=== PATIENT | female | born 1955 | race Caucasian/White ===

== ENCOUNTER 2016-07-04 14:02 | Observation (INO) | payer OTHER ==
[2016-07-04] MEDS ORDERED: Aspirin Low Dose CHEW TAB* 81 MG PO ONE (16:23)
--- NOTE | 2016-07-04 16:52 | RAD ---
HISTORY: Chest pain, shortness breath, pneumonia, CHF COMPARISONS: None VIEWS:1: Single frontal portable view of the chest at 4:36 PM FINDINGS: LINES AND TUBES: None. CARDIOMEDIASTINAL SILHOUETTE: The cardiomediastinal silhouette is normal for portable technique. PLEURA: The costophrenic angles are sharp. No pleural abnormalities are noted. LUNG PARENCHYMA: The lungs are clear. ABDOMEN: The upper abdomen is clear. There is no subphrenic gas. BONES AND SOFT TISSUES: No bone or soft tissue abnormalities are noted. IMPRESSION: NO ACTIVE CARDIOPULMONARY DISEASE.
[2016-07-04 17:10] LABS: Hematocrit 43 % (35-47); Hemoglobin 14.4 g/dl (12.0-16.0); Mean Corpuscular HGB Conc 33 g/dl (31-36); Mean Corpuscular Hemoglobin 29 pg (27-31); Mean Corpuscular Volume 88 fL (80-97); Mean Platelet Volume 8 um3 (7.4-10.4); Red Blood Count 4.88 10^6/ul (4.0-5.4); Red Cell Distribution Width 13 % (10.5-15); White Blood Count 8.8 10^3/ul (3.5-10.8)
[2016-07-04 17:26] LABS: Albumin 4.2 g/dL (3.2-5.2); BUN/Creatinine Ratio 16.9 (8-20); Calcium 9.2 mg/dL (8.6-10.3); EGFR Non-African American 93.3 (>60); Globulin 2.7 g/dL (2-4); Potassium 3.9 mmol/L (3.5-5.0); Total Bilirubin 0.3 mg/dL (0.2-1.0); Total Protein 6.9 g/dL (6.4-8.9)
[2016-07-04] MEDS ORDERED: Nicotine Inhaler* 10 MG AMP INH PRN (18:11)
[2016-07-04] MEDS ORDERED: Acetaminophen TAB* 325 MG PO PRN (18:11)
--- NOTE | 2016-07-04 19:34 | ED ---
Dima Malhotra Adam, scribed for Speedy Shannon MD on 07/04/16 at 1620 . HPI Chest Pain - HPI Summary HPI Summary: Pt is a 60 year old female presenting with CP. She states that she was shoveling snow at 13:30 when she suddenly felt a sharp pain in her chest. Since then it has been more of a "tight ache". It radiates to her left shoulder blade and the left side of her neck. Position does not affect the CP. Deep breaths aggravate the pain. She reports feeling short of breath when the CP first set on while she was shoveling but she denies any SOB since then. Pt states that she developed a condition several years ago where she occasionally has to bear down. She denies any other PMHx and denies ever having a stress test. FMHx of cardiac disease (grandparent). Positive tobacco Hx. - History of Current Complaint Chief Complaint: EDChestPainROMI Time Seen by Provider: 07/04/16 16:13 Hx Obtained From: Patient Onset/Duration: Started Hours Ago, Atraumatic, Still Present Timing: Constant, Lasting Hours Initial Severity: Moderate Current Severity: Moderate Pain Intensity: 4 Pain Scale Used: 0-10 Numeric Chest Pain Location: Diffuse Chest Pain Radiates: Yes Chest Pain Radiates To:: Shoulder, Neck Character: Dull/Aching, Sharp/Stabbing, Tightness Aggravating Factor(s): Deep Breaths Alleviating Factor(s): Nothing Associated Signs and Symptoms: Positive: Shortness of Breath - Allergy/Home Medications Allergies/Adverse Reactions: Allergies Allergy/AdvReac Type Severity Reaction Status Date / Time No Known Allergies Allergy Verified 10/21/13 16:38 Home Medications: Home Medications NK [No Home Medications Reported] 07/04/16 [History Confirmed 07/04/16] PMH/Surg Hx/FS Hx/Imm Hx Endocrine/Hematology History: Denies: Hx Diabetes, Hx Thyroid Disease Cardiovascular History: Denies: Hx Hypertension, Hx Pacemaker/ICD Respiratory History: Denies: Hx Asthma, Hx Chronic Obstructive Pulmonary Disease (COPD) GI History: Denies: Hx Ulcer Sensory History: Denies: Hx Hearing Aid Psychiatric History: Denies: Hx Panic Disorder - Cancer History Cancer Type, Location and Year: skin ca to leg Infectious Disease History: No Infectious Disease History: Denies: Hx Hepatitis, Hx Human Immunodeficiency Virus (HIV), Traveled Outside the [place] in Last 30 Days - Family History Known Family History: Positive: Cardiac Disease - Grandparent - Social History Occupation: Employed Full-time Lives: With Family - Alcohol Use: None Hx Substance Use: Yes Substance Use Type: Reports: Marijuana Substance Use Comment - Amount & Last Used: occasionally Hx Tobacco Use: Yes Smoking Status (MU): Current Every Day Smoker Type: Cigarettes Amount Used/How Often: 1/2 3/4ppd Have You Smoked in the Last Year: Yes Review of Systems Positive: Chest Pain Positive: Shortness Of Breath Positive: Anxious All Other Systems Reviewed And Are Negative: Yes Physical Exam - Summary Physical Exam Summary: The patient is well-nourished in no acute distress and in no acute pain. The skin is warm and dry and skin color reflects adequate perfusion. HEENT: The head is normocephalic and atraumatic. The pupils are equal and reactive. The conjunctivae are clear and without drainage. Nares are patent and without drainage. Mouth reveals moist mucous membranes and the throat is without erythema and exudate. The external ears are intact. The ear canals are patent and without drainage. The tympanic membranes are intact. Neck is supple with full range of motion and non-tender. There are no carotid bruits. There is no neck vein distension. Respiratory: No reproducible chest tenderness. Lungs are clear to auscultation and breath sounds are symmetrical and equal. Cardiovascular: Heart is regular rate and rhythm. There is no murmur or rub auscultated. There is no peripheral edema and pulses are symmetrical and equal. Abdomen: The abdomen is soft and non-tender. There are normal bowel sounds heard in all four quadrants and there is no organomegaly palpated. Musculoskeletal: Tenderness in the left paravertebral musculature L1-L4. Extremities are non-tender with full range of motion. There is good capillary refill. There is no peripheral edema or calf tenderness elicited. Neurological: Patient is alert and oriented to person, place and time. The patient has symmetrical motor strength in all four extremities. Cranial nerves are grossly intact. Deep tendon reflexes are symmetrical and equal in all four extremities. Psychiatric: The patient has an appropriate affect and does not exhibit any anxiety or depression. Triage Information Reviewed: Yes Vital Signs On Initial Exam: Initial Vitals Temp Pulse Resp BP Pulse Ox 97.5 F 67 20 149/82 100 07/04/16 14:07 07/04/16 14:07 07/04/16 14:07 07/04/16 14:07 07/04/16 14:07 Vital Signs Reviewed: Yes Diagnostics - Vital Signs Vital Signs Temp Pulse Resp BP Pulse Ox 07/04/16 15:35 98.6 F 65 20 135/80 98 07/04/16 14:07 97.5 F 67 20 149/82 100 - Laboratory Lab Results: Lab Results 07/04/16 07/04/16 07/04/16 Range/Units 17:00 17:00 17:00 WBC 8.8 (3.5-10.8) 10^3/ul RBC 4.88 (4.0-5.4) 10^6/ul Hgb 14.4 (12.0-16.0) g/dl Hct 43 (35-47) % MCV 88 (80-97) fL MCH 29 (27-31) pg MCHC 33 (31-36) g/dl RDW 13 (10.5-15) % Plt Count 247 (150-450) 10^3/ul MPV 8 (7.4-10.4) um3 Neut % (Auto) 43.4 (38-83) % Lymph % (Auto) 48.1 H (25-47) % [place] % (Auto) 6.4 (1-9) % Eos % (Auto) 1.2 (0-6) % Baso % (Auto) 0.9 (0-2) % Absolute Neuts (auto) 3.8 (1.5-7.7) 10^3/ul Absolute Lymphs (auto) 4.2 (1.0-4.8) 10^3/ul Absolute Monos (auto) 0.6 (0-0.8) 10^3/ul Absolute Eos (auto) 0.1 (0-0.6) 10^3/ul Absolute Basos (auto) 0.1 (0-0.2) 10^3/ul Absolute Nucleated RBC 0 10^3/ul Nucleated RBC % 0 INR (Anticoag Therapy) (0.89-1.11) Sodium 137 (133-145) mmol/L Potassium 3.9 (3.5-5.0) mmol/L Chloride 103 (101-111) mmol/L Carbon Dioxide 30 (22-32) mmol/L Anion Gap 4 (2-11) mmol/L BUN 11 (6-24) mg/dL Creatinine 0.65 (0.51-0.95) mg/dL Est GFR ( Amer) 120.0 (>60) Est GFR (Non-Af Amer) 93.3 (>60) BUN/Creatinine Ratio 16.9 (8-20) Glucose 94 (70-100) mg/dL Lactic Acid 0.6 (0.5-2.0) mmol/L Calcium 9.2 (8.6-10.3) mg/dL Total Bilirubin 0.30 (0.2-1.0) mg/dL AST 20 (13-39) U/L ALT 12 (7-52) U/L Alkaline Phosphatase 63 (34-104) U/L Troponin I 0.00 (<0.04) ng/mL B-Natriuretic Peptide ( - 100) pg/mL Total Protein 6.9 (6.4-8.9) g/dL Albumin 4.2 (3.2-5.2) g/dL Globulin 2.7 (2-4) g/dL Albumin/Globulin Ratio 1.6 (1-3) 17 07/04/16 Range/Units 17:00 17:00 WBC (3.5-10.8) 10^3/ul RBC (4.0-5.4) 10^6/ul Hgb (12.0-16.0) g/dl Hct (35-47) % MCV (80-97) fL MCH (27-31) pg MCHC (31-36) g/dl RDW (10.5-15) % Plt Count (150-450) 10^3/ul MPV (7.4-10.4) um3 Neut % (Auto) (38-83) % Lymph % (Auto) (25-47) % [place] % (Auto) (1-9) % Eos % (Auto) (0-6) % Baso % (Auto) (0-2) % Absolute Neuts (auto) (1.5-7.7) 10^3/ul Absolute Lymphs (auto) (1.0-4.8) 10^3/ul Absolute Monos (auto) (0-0.8) 10^3/ul Absolute Eos (auto) (0-0.6) 10^3/ul Absolute Basos (auto) (0-0.2) 10^3/ul Absolute Nucleated RBC 10^3/ul Nucleated RBC % INR (Anticoag Therapy) 0.90 (0.89-1.11) Sodium (133-145) mmol/L Potassium (3.5-5.0) mmol/L Chloride (101-111) mmol/L Carbon Dioxide (22-32) mmol/L Anion Gap (2-11) mmol/L BUN (6-24) mg/dL Creatinine (0.51-0.95) mg/dL Est GFR ( Amer) (>60) Est GFR (Non-Af Amer) (>60) BUN/Creatinine Ratio (8-20) Glucose (70-100) mg/dL Lactic Acid (0.5-2.0) mmol/L Calcium (8.6-10.3) mg/dL Total Bilirubin (0.2-1.0) mg/dL AST (13-39) U/L ALT (7-52) U/L Alkaline Phosphatase (34-104) U/L Troponin I (<0.04) ng/mL B-Natriuretic Peptide 20 ( - 100) pg/mL Total Protein (6.4-8.9) g/dL Albumin (3.2-5.2) g/dL Globulin (2-4) g/dL Albumin/Globulin Ratio (1-3) Result Diagrams: 07/04/16 17:00 07/04/16 17:00 Lab Statement: Any lab studies that have been ordered have been reviewed, and results considered in the medical decision making process. - Radiology CXR Radiology Interpretation Completed By: Radiologist - IMPRESSION: NO ACTIVE CARDIOPULMONARY DISEASE. - EKG 14:00 Cardiac Rate: NL - 67 BPM EKG Rhythm: Sinus Rhythm EKG Interpretation: Normal axis. No ST elevation. 16:26 Cardiac Rate: NL - 59 BPM EKG Rhythm: Sinus Rhythm EKG Interpretation: No ST changes - Additional Comments Diagnostic Additional Comments: Troponin I - 0.00 Chest Pain Course/Dx - Course Course Of Treatment: MD Calc score = 3 points (low cardiac risk) - Chest Pain Differential Diagnosis/HQI/PQRI: Acute VT, ACS, Angina, Chest Wall, Lower Respiratory Infection - Diagnoses Provider Diagnoses: Exertional chest discomfort - Provider Notifications Discussed Care Of Patient With: Dr. Michael (Hospitalist) at approximately 17: 50. Patient will be admitted for observation. Discharge - Discharge Plan Condition: Stable Disposition: ADMITTED TO [facility] documentation as recorded by the Dima peraza Adam accurately reflects the service I personally performed and the decisions made by me, Speedy Shannon MD.
[2016-07-04] MEDS ORDERED: Mouth Piece, Nicotine* 1 EACH CARTRIDGE INH ONE (20:00)
--- NOTE | 2016-07-04 21:01 | HP ---
HOSPITAL MEDICINE HISTORY AND PHYSICAL: DATE OF ADMISSION: 07/04/16 PRIMARY CARE PHYSICIAN: Dr. Grossman. ATTENDING PHYSICIAN: Dr. Wyatt Shepard * (dictation provided by Yolanda Freitas NP ). CHIEF COMPLAINT: Chest pain. HISTORY OF PRESENT ILLNESS: Ms. Jordan is a 60-year-old female who has a past medical history of suspected SVT who presents today to the hospital with chest pain while shoveling. Ms. Jordan states she has been in her normal state of health and no complaints. She woke up this morning, was feeling well. She went out after the snowstorm to shovel and almost immediately developed a sharp pain in the left side of her chest. This pain lasted approximately 10 seconds. She sat down and rested, but felt some heaviness in her chest thereafter. She went inside, called her , and planned to take a nap. Her came home and immediately brought her to the emergency room. The patient denies any associated symptoms of radiation, diaphoresis, or nausea, but she states she still feels some sense of heaviness in her chest at this time. In the emergency room, Ms. Jordan had a troponin which was 0.00 and an EKG which showed a sinus rhythm with no evidence of ischemia. Her risk factors include continued smoking. In terms of the history of supraventricular tachycardia, she states that she has periods where she feels her heart is racing for which she will "bear down" and this will go away. She states this happens infrequently. She states that bearing down does make the feeling of fast heart rate go away. Based on Ms. Jordan's presentation with chest pain during activity, Hospital Medicine was called regarding admission. PAST MEDICAL HISTORY: SVT. MEDICATIONS: None. ALLERGIES: None. FAMILY HISTORY: The patient reports her mother is still alive and has a history of an aortic aneurysm. Her father related to ankylosing spondylosis. Her grandparents at age 90 or older. Her siblings are alive and healthy. SOCIAL HISTORY: The patient has continued to smoke and smokes about 12 cigarettes a day. At this point, she denies any alcohol or drug use. She lives with her who is the healthcare proxy. REVIEW OF SYSTEMS: A 14-point review of systems was completed with Ms. Jordan and all those not mentioned above were negative. PHYSICAL EXAMINATION GENERAL: Ms. Jordan is lying in the bed. She is in no acute distress. VITAL SIGNS: Temperature 98.6, heart rate 65, respiratory rate 20, O2 saturation 98% on room air, blood pressure 135/80. LUNGS: Clear to auscultation bilaterally with no accessory muscle use and good aeration. HEART: S1, S2. No murmur, rub, or gallop and regular. ABDOMEN: Soft, nontender with bowel sounds positive x4. EXTREMITIES: No cyanosis or edema. NEURO: She is alert and oriented x3. She moves all extremities equally. There is no facial asymmetry or focal weakness. Extraocular movements are intact. SKIN: Intact. DIAGNOSTIC STUDIES/LAB DATA: WBC 8.8, hemoglobin 14.4, hematocrit 43, platelet count 247. INR 0.90. Sodium 137, potassium 3.9, chloride 103, serum bicarbonate 30, BUN 11, creatinine 0.65, glucose 94, lactic acid 0.6. Troponin 0.00. EKG shows sinus rhythm with no evidence of ischemia. Chest x-ray shows no acute intrathoracic process. ASSESSMENT AND PLAN: Ms. Jordan is a 60-year-old female with past medical history of suspected supraventricular tachycardia, who presents today to the emergency room after experiencing chest pain while shoveling her driveway. Her troponin is 0 and her EKG shows no evidence of ischemia. Plans are for observation in the hospital for the followin. Chest pain: The patient does have one risk factor which is smoking and her story is consistent with a possible acute coronary syndrome. Our plans will be for repeat troponin x2. She will be monitored on the telemetry unit. She will go on for an exercise stress test without nuclear medicine tomorrow. 2. History of supraventricular tachycardia: Again, the patient will have telemetry monitoring. 3. DVT prophylaxis: With early mobility. 4. Smoking history: The patient will be provided with nicotine replacement and smoking cessation counseling was offered today in the emergency room. 5. Code status is full code. 6. Disposition to telemetry. TIME SPENT: Approximately 60 minutes was spent on the admission of this patient , more than half time spent with her at the bedside reviewing the events leading up to this hospitalization, performing the physical examination, and reviewing the plan of care. YOLANDA FREITAS NP CC: Dr. Grossman* [id number]/CPS #: [id number] SUSHMA
[2016-07-05] MEDS ORDERED: Nicotine PATCH 14 MG/24 HR* PATCH TRANSDERM SCH (09:00)
[2016-07-05] MEDS ORDERED: Aspirin EC Low Dose* 81 MG TAB.EC PO SCH (09:00)
[2016-07-05 09:56] VITALS: BP 108/71
--- NOTE | 2016-07-05 10:22 | PN ---
Subjective Date of Service: 07/05/16 Interval History: Ms. Jordan states that she is feeling well and is eager for discharge to home. Objective Active Medications: Acetaminophen (Tylenol Tab*) 650 mg PO Q6H PRN Aspirin (Aspirin Ec Low Dose*) 81 mg PO DAILY [facility] Nicotine (Nicotine Inhaler*) 10 mg INH Q2H PRN Nicotine (Nicotine Patch 14 Mg/24 Hr*) 1 patch TRANSDERM Q24H [facility] Pharmacy Profile Note (Nicotine Patch Removal Note*) 1 note PATCH OFF 2100 [facility] Vital Signs 07/04/16 07/04/16 07/04/16 18:25 18:30 19:09 Temperature 97.4 F Pulse Rate 75 78 64 Respiratory 13 20 16 Rate Blood Pressure 135/85 122/86 123/79 (mmHg) O2 Sat by Pulse 97 95 97 Oximetry 07/04/16 07/04/16 07/04/16 19:23 19:26 22:07 Temperature 97.4 F Pulse Rate 74 Respiratory 16 16 16 Rate Blood Pressure 123/79 (mmHg) O2 Sat by Pulse 98 Oximetry 07/05/16 07/05/16 07/05/16 00:20 03:24 07:12 Temperature 97.7 F 97.4 F 97.3 F Pulse Rate 75 62 54 Respiratory 16 16 18 Rate Blood Pressure 96/68 93/58 108/71 (mmHg) O2 Sat by Pulse 97 96 93 Oximetry Oxygen Devices in Use Now: None Appearance: Female sitting up in bed in NAD Respiratory: Symmetrical Chest Expansion and Respiratory Effort, Clear to Auscultation Cardiovascular: NL Sounds; No Murmurs; No JVD, No Edema Abdominal: NL Sounds; No Tenderness; No Distention Extremities: No Edema Skin: No Rash or Ulcers Neurological: Alert and Oriented x 3, NL Muscle Strength and Tone Nutrition: Taking PO's Result Diagrams: 07/04/16 17:00 07/04/16 17:00 Additional Lab and Data: Lab Results 07/04/16 07/04/16 07/04/16 Range/Units 17:00 17:00 17:00 WBC 8.8 (3.5-10.8) 10^3/ul RBC 4.88 (4.0-5.4) 10^6/ul Hgb 14.4 (12.0-16.0) g/dl Hct 43 (35-47) % MCV 88 (80-97) fL MCH 29 (27-31) pg MCHC 33 (31-36) g/dl RDW 13 (10.5-15) % Plt Count 247 (150-450) 10^3/ul MPV 8 (7.4-10.4) um3 Neut % (Auto) 43.4 (38-83) % Lymph % (Auto) 48.1 H (25-47) % [place] % (Auto) 6.4 (1-9) % Eos % (Auto) 1.2 (0-6) % Baso % (Auto) 0.9 (0-2) % Absolute Neuts (auto) 3.8 (1.5-7.7) 10^3/ul Absolute Lymphs (auto) 4.2 (1.0-4.8) 10^3/ul Absolute Monos (auto) 0.6 (0-0.8) 10^3/ul Absolute Eos (auto) 0.1 (0-0.6) 10^3/ul Absolute Basos (auto) 0.1 (0-0.2) 10^3/ul Absolute Nucleated RBC 0 10^3/ul Nucleated RBC % 0 INR (Anticoag Therapy) (0.89-1.11) Sodium 137 (133-145) mmol/L Potassium 3.9 (3.5-5.0) mmol/L Chloride 103 (101-111) mmol/L Carbon Dioxide 30 (22-32) mmol/L Anion Gap 4 (2-11) mmol/L BUN 11 (6-24) mg/dL Creatinine 0.65 (0.51-0.95) mg/dL Est GFR ( Amer) 120.0 (>60) Est GFR (Non-Af Amer) 93.3 (>60) BUN/Creatinine Ratio 16.9 (8-20) Glucose 94 (70-100) mg/dL Lactic Acid 0.6 (0.5-2.0) mmol/L Calcium 9.2 (8.6-10.3) mg/dL Total Bilirubin 0.30 (0.2-1.0) mg/dL AST 20 (13-39) U/L ALT 12 (7-52) U/L Alkaline Phosphatase 63 (34-104) U/L Troponin I 0.00 (<0.04) ng/mL B-Natriuretic Peptide ( - 100) pg/mL Total Protein 6.9 (6.4-8.9) g/dL Albumin 4.2 (3.2-5.2) g/dL Globulin 2.7 (2-4) g/dL Albumin/Globulin Ratio 1.6 (1-3) 07/04/16 07/04/16 Range/Units 17:00 17:00 WBC (3.5-10.8) 10^3/ul RBC (4.0-5.4) 10^6/ul Hgb (12.0-16.0) g/dl Hct (35-47) % MCV (80-97) fL MCH (27-31) pg MCHC (31-36) g/dl RDW (10.5-15) % Plt Count (150-450) 10^3/ul MPV (7.4-10.4) um3 Neut % (Auto) (38-83) % Lymph % (Auto) (25-47) % [place] % (Auto) (1-9) % Eos % (Auto) (0-6) % Baso % (Auto) (0-2) % Absolute Neuts (auto) (1.5-7.7) 10^3/ul Absolute Lymphs (auto) (1.0-4.8) 10^3/ul Absolute Monos (auto) (0-0.8) 10^3/ul Absolute Eos (auto) (0-0.6) 10^3/ul Absolute Basos (auto) (0-0.2) 10^3/ul Absolute Nucleated RBC 10^3/ul Nucleated RBC % INR (Anticoag Therapy) 0.90 (0.89-1.11) Sodium (133-145) mmol/L Potassium (3.5-5.0) mmol/L Chloride (101-111) mmol/L Carbon Dioxide (22-32) mmol/L Anion Gap (2-11) mmol/L BUN (6-24) mg/dL Creatinine (0.51-0.95) mg/dL Est GFR ( Amer) (>60) Est GFR (Non-Af Amer) (>60) BUN/Creatinine Ratio (8-20) Glucose (70-100) mg/dL Lactic Acid (0.5-2.0) mmol/L Calcium (8.6-10.3) mg/dL Total Bilirubin (0.2-1.0) mg/dL AST (13-39) U/L ALT (7-52) U/L Alkaline Phosphatase (34-104) U/L Troponin I (<0.04) ng/mL B-Natriuretic Peptide 20 ( - 100) pg/mL Total Protein (6.4-8.9) g/dL Albumin (3.2-5.2) g/dL Globulin (2-4) g/dL Albumin/Globulin Ratio (1-3) Assess/Plan/Problems-Billing Assessment: Ms. Jordan is a 60 yo female with a PMH of SVT who was admitted on 07/04/16 with chest pain. - Patient Problems (1) Chest pain Comment: Trops 0.00 x 3. Exercise stress test negative. Encouraged smoking cessation. (2) SVT (supraventricular tachycardia) Comment: No episodes noted on telemetry. Patient manages intermittent episodes at home with valsalva maneuver. Status and Disposition: OBV. Discharge to home.
[2016-07-05] MEDS ORDERED: Nicotine Patch Removal NOTE PATCH OFF SCH (21:00)
--- NOTE | 2016-07-05 21:39 | DS ---
DISCHARGE SUMMARY: DATE OF ADMISSION: 07/04/16 DATE OF DISCHARGE: 07/05/16 PRIMARY CARE PHYSICIAN: Dr. Grossman. ATTENDING PHYSICIAN: Dr. Cem Griffin *(dictation provided by Sonia Freitas NP) PRIMARY DIAGNOSIS: Chest pain, atypical. SECONDARY DIAGNOSES: 1. History of suspected supraventricular tachycardia, controlled with Valsalva maneuver. 2. Ongoing smoking. MEDICATIONS: None. HOSPITAL COURSE: Ms. Jordan is a 60-year-old female with past medical history of SVT who presented to the hospital on 07/04/16 with concern for chest pain while shoveling snow. Ms. Jordan states that she was in a normal state of health prior to going out and shoveling the snow when she developed sharp pain to the left side of her chest. In the emergency room, she had troponin, which was 0.00 and EKG, which showed no evidence of ischemia. Ms. Jordan was placed on observation in the hospital. She has 3 troponins, which were all 0.00. She had no further chest discomfort. During the hospitalization, she went on for an exercise stress test, which she was able to achieve 85% of her intended activity, which showed no evidence of EKG changes or ischemia. The test was felt to be negative and Cardiology recommended lifestyle modification. Ms. Jordan is strongly encouraged to stop smoking. She states she is down to about 10 to 12 cigarettes per day and I have reinforced with her the need to quit completely in order to live a nice long and healthy life. DISPOSITION: To home. DIET: Low fat. ACTIVITIES: As tolerated. FOLLOWUP PLANS: Please follow up with Dr. Grossman regarding smoking cessation. TIME SPENT: Approximately 60 minutes were spent on the discharge of this patient; more than half the time was spent with her at the bedside reviewing the events leading to this hospitalization, performing the physical examination , and reviewing the plan of care. SONIA FREITAS NP CC: Dr. Grossman* [id number]/CPS #: [id number] MTDD
== END 2016-07-05 14:20 | disposition home or self-care (01) ==
LOC: ED 14:02 → MEDTELE 18:14
PROVIDERS: ADMIT Internal Medicine; ATTEND Hospitalist
DX: R07.89 Other chest pain (principal); I47.1 Supraventricular tachycardia; R06.02 Shortness of breath; R00.1 Bradycardia, unspecified; F17.210 Nicotine dependence, cigarettes, uncomplicated
CPT/HCPCS: 36415; 71010; 80053; 83605; 83880; 84484; 85025; 85610; 93005; 93017; 99283; A9270-GY; G0378

== ENCOUNTER 2018-01-03 09:35 | Emergency (ER) | payer BC, OTHER ==
[2018-01-03 09:47] VITALS: BP 136/81
--- NOTE | 2018-01-03 10:17 | UC ---
General HPI - HPI Summary HPI Summary: patient was hanging decorations while standing on a ladder, she remembers fallin off the ladder and doesnt remember hw long she was on the floor, it was an unwitnessed fall and when she came to, her states she was complaining of pain in her right wrist and left leg. wound to the upper right eye lid. She is alert and oriented at this time. does have complaints of headache and dizziness. speech is not slurred and pupils are reactive. swelling and deformity of right wrist noted. left screen tender over the latera aspect of foot, no swelling - History of Current Complaint Chief Complaint: UCUpperExtremity Stated Complaint: WRIST,HEAD INJURY Time Seen by Provider: 01/03/18 10:00 Hx Obtained From: Patient Hx Last Menstrual Period: menapause for 10ys Onset/Duration: Sudden Onset, Lasting Hours Onset Severity: Severe Current Severity: Severe Pain Intensity: 8 Associated Signs & Symptoms: Positive: Dizziness, Edema - of wrist, Headache, Trauma - fall - Allergy/Home Medications Allergies/Adverse Reactions: Allergies Allergy/AdvReac Type Severity Reaction Status Date / Time No Known Allergies Allergy Verified 01/03/18 09:47 PMH/Surg Hx/FS Hx/Imm Hx Previously Healthy: Yes - Surgical History Surgical History: Yes Surgery Procedure, Year, and Place: 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 - Family History Known Family History: Positive: Cardiac Disease - Grandparent - Social History Alcohol Use: None Substance Use Type: Marijuana Substance Use Comment - Amount & Last Used: occasionally Smoking Status (MU): Heavy Every Day Tobacco Smoker Type: Cigarettes Amount Used/How Often: 1/2 to 3/4ppd Have You Smoked in the Last Year: Yes Household Exposure Type: Cigarettes Review of Systems Constitutional: Fatigue Skin: Other - pen area on right eye Eyes: Negative ENT: Negative Cardiovascular: Negative Gastrointestinal: Negative Genitourinary: Negative Motor: Negative Neurovascular: Negative Musculoskeletal: Arthralgia, Decreased ROM, Edema, Myalgia Neurological: Headache Psychological: Negative Is Patient Immunocompromised?: No All Other Systems Reviewed And Are Negative: Yes Physical Exam Triage Information Reviewed: Yes Appearance: Well-Nourished, Ill-Appearing, Pain Distress Vital Signs: Initial Vital Signs Temp 97.7 F 01/03/18 09:44 Pulse 77 01/03/18 09:44 Resp 18 08/11/18 09:44 BP 136/81 01/03/18 09:44 Pulse Ox 99 01/03/18 09:44 Vital Signs Reviewed: Yes Eye Exam: Normal Eyes: Positive: Other: - PERRLA ENT Exam: Normal ENT: Positive: Pharynx normal, TMs normal Dental Exam: Normal Neck: Positive: Tenderness @ - able to move her neck without difficulty Respiratory Exam: Normal Respiratory: Positive: Chest non-tender, Lungs clear, Normal breath sounds Cardiovascular Exam: Normal Cardiovascular: Positive: RRR, No Murmur, Pulses Normal Abdominal Exam: Normal Abdomen Description: Positive: Nontender, No Organomegaly, Soft Bowel Sounds: Positive: Present Musculoskeletal: Positive: Strength Limited @ - due to pain, ROM Limited @ - right wrist andleft foot, Edema @ - of right wrist Neurological Exam: Normal Neurological: Positive: Alert, Muscle Tone Normal Psychological Exam: Normal Skin: Positive: significant lesion(s) - approximatley 2 cm laceration above the right eye Course/Dx - Course Course Of Treatment: hx obtained, exam performed, due to the need for a head CT ER was consulted and she was sent via private car to ER. mitch and sling applied to right arm. patient and family in agreement with plan, spoke with Tamra MENDEZ in ER. - Differential Dx - Multi-Symptom Provider Diagnoses: head injury - Physician Notifications Discussed Patient Care With: Tamra Silva Instructed by Provider To: MD Will See In ED Discharge - Sign-Out/Discharge Documenting (check all that apply): Patient Departure - Discharge Plan Condition: Stable Disposition: HOME-RECOMMEND TO ED Patient Education Materials: Head Injury (ED) Referrals: Dylan Grossman MD [Primary Care Provider] - Additional Instructions: 1. Please report for further evaluation in the ER. - Billing Disposition and Condition Condition: STABLE Disposition: Home-Recommend to ED
== END 2018-01-03 10:30 | disposition home health service (06) ==
LOC: UCEAST 09:35
DX: S06.9X9A Unspecified intracranial injury with loss of consciousness of unspecified duration, initial encounter (principal); S01.81XA Laceration without foreign body of other part of head, initial encounter; W11.XXXA Fall on and from ladder, initial encounter; Y93.89 Activity, other specified; Y92.9 Unspecified place or not applicable; M25.531 Pain in right wrist; M79.605 Pain in left leg; R53.83 Other fatigue; F17.210 Nicotine dependence, cigarettes, uncomplicated
CPT/HCPCS: 99213; G0463

== ENCOUNTER 2018-01-03 10:43 | Emergency (ER) | payer BC, OTHER ==
[2018-01-03] MEDS ORDERED: Ondansetron INJ* 2 MG/ML VIAL IV ONE ×2 (12:37→14:42)
[2018-01-03] MEDS ORDERED: Morphine INJ* 2 MG/ML 1 ML CARPUJECT IV ONE (12:37)
--- NOTE | 2018-01-03 12:40 | ED ---
Adult Trauma - HPI Summary HPI Summary: This patient is a 62 year old F presenting to [facility] accompanied by status post fall from standing on a chair. Patient believes she lost consciousness, but is unsure how long she was unconscious. The patient rates the pain 8/10 in severity. Symptoms aggravated by nothing. Symptoms alleviated by nothing. Patient reports R wrist pain, L foot pain, and R eyebrow laceration. - History of Current Complaint Chief Complaint: EDTraumaMultiple Stated Complaint: FALL Time Seen by Provider: 01/03/18 12:32 Hx Obtained From: Patient Hx Last Menstrual Period: menapause for 10ys ?: No Mechanism of Injury: Fall Loss of Consciousness: unsure Onset/Duration: Started Hours Ago, Traumatic, Still Present Onset of Pain: Immediate Onset Severity: Severe Current Severity: Severe Pain Intensity: 8 Pain Scale Used: 0-10 Numeric Location: Extremities Aggravating Factor(s): Nothing Alleviating Factor(s): Nothing Associated Signs & Symptoms: Positive: Other: - Positive R wrist pain, L foot pain, and R eyebrow laceration. - Additional Pertinent History Primary Care Physician: [id number] - Allergy/Home Medications Allergies/Adverse Reactions: Allergies Allergy/AdvReac Type Severity Reaction Status Date / Time No Known Allergies Allergy Verified 01/03/18 11:01 PMH/Surg Hx/FS Hx/Imm Hx Previously Healthy: No Endocrine/Hematology History: Denies: Hx Diabetes, Hx Thyroid Disease Cardiovascular History: Reports: Other Cardiovascular Problems/Disorders - pt reports runs of tachycardia Denies: Hx Angina, Hx Coronary Artery Disease, Hx Hypercholesterolemia, Hx Hypertension, Hx Myocardial Infarction, Hx Pacemaker/ICD, Hx Valvular Heart Disease Respiratory History: Denies: Hx Asthma, Hx Chronic Obstructive Pulmonary Disease (COPD) GI History: Denies: Hx Ulcer Musculoskeletal History: Reports: Hx Orthopedic Injury, Hx Osteoporosis Sensory History: Reports: Hx Contacts or Glasses Denies: Hx Hearing Aid Opthamlomology History: Reports: Hx Contacts or Glasses Psychiatric History: Denies: Hx Panic Disorder - Cancer History Cancer Type, Location and Year: skin ca to leg - Surgical History Surgery Procedure, Year, and Place: 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 Hx Anesthesia Reactions: - local only - Immunization History Date of Tetanus Vaccine: UTD Date of Influenza Vaccine: 2015 Infectious Disease History: No Infectious Disease History: Denies: Hx Hepatitis, Hx Human Immunodeficiency Virus (HIV), Traveled Outside the [place] in Last 30 Days - Family History Known Family History: Positive: Cardiac Disease - Grandparent - Social History Occupation: Unemployed Lives: With Family Alcohol Use: None Hx Substance Use: Yes Substance Use Type: Reports: Marijuana Substance Use Comment - Amount & Last Used: occasionally Hx Tobacco Use: Yes Smoking Status (MU): Heavy Every Day Tobacco Smoker Type: Cigarettes Amount Used/How Often: 1/2 to 3/4ppd Have You Smoked in the Last Year: Yes Review of Systems Positive: Other - Positive R wrist pain and L foot pain Positive: Other - Positive R eyebrow laceration All Other Systems Reviewed And Are Negative: Yes Physical Exam - Summary Physical Exam Summary: VITAL SIGNS: Reviewed. GENERAL: Patient is a well-developed and nourished female who is lying comfortable in the stretcher. Patient is not in any acute respiratory distress. HEAD AND FACE: No signs of trauma. No ecchymosis, hematomas or skull depressions. No sinus tenderness. EYES: PERRLA, EOMI x 2, No injected conjunctiva, no nystagmus. EARS: Hearing grossly intact. Ear canals and tympanic membranes are within normal limits. MOUTH: Oropharynx within normal limits. NECK: Supple, trachea is midline, no adenopathy, no JVD, no carotid bruit, no c- spine tenderness, neck with full ROM. CHEST: Symmetric, no tenderness at palpation LUNGS: Clear to auscultation bilaterally. No wheezing or crackles. CVS: Regular rate and rhythm, S1 and S2 present, no murmurs or gallops appreciated. ABDOMEN: Soft, non-tender. No signs of distention. No rebound no guarding, and no masses palpated. Bowel sounds are normal. EXTREMITIES: No cyanosis or clubbing. A little bit of swelling in the L ankle. Deformity noted in the right wrist. NEURO: Alert and oriented x 3. No acute neurological deficits. Speech is normal and follows commands. SKIN: Dry and warm. Laceration over the R eyebrow approximately 1 cm Triage Information Reviewed: Yes Vital Signs On Initial Exam: Initial Vitals Temp Pulse Resp BP Pulse Ox 98.0 F 68 14 154/80 97 01/03/18 10:49 01/03/18 10:49 01/03/18 10:49 01/03/18 10:49 01/03/18 10:49 Vital Signs Reviewed: Yes Procedures - Splinting Right Wrist Location: Right Wrist Hand-Made Type: fiberglass Splint: wrist Pre-Proc Neuro Vasc Exam: normal Post-Proc Neuro Vasc Exam: normal - Laceration/Wound Repair 1 Location: face Description: Linear Anesthesia: Lido Length, Depth and Shape: 1 cm Laceration/Wound Explored: clean Closure: Single Layer Suture Type: Nylon Number of Sutures: 5 Layer Closure?: Yes Sterile Dressing Applied?: Yes Diagnostics - Vital Signs Vital Signs Temp Pulse Resp BP Pulse Ox 01/03/18 10:49 98.0 F 68 14 154/80 97 - Laboratory Result Diagrams: 01/03/18 12:49 01/03/18 12:49 Lab Statement: Any lab studies that have been ordered have been reviewed, and results considered in the medical decision making process. - Radiology L Ankle XR Radiology Interpretation Completed By: Radiologist - L ankle XR reveals, per radiologist, possible nondisplaced fracture of the distal fibula. ED physician has reviewed this radiology report. R Wrist XR Radiology Interpretation Completed By: Radiologist - R wrist XR reveals, per radiologist, 1. Slightly impacted comminuted, intra-articular fracture of the distal radius. 2. Fracture of the ulnar styloid process. ED physician has reviewed this radiology report. R Hand XR Radiology Interpretation Completed By: Radiologist - R hand XR reveals, per radiologist, fractures of the distal radius and ulnar styloid process as previously described. No additional fracture is seen. ED physician has reviewed this radiology report. - CT Brain CT CT Interpretation Completed By: Radiologist - Brain CT reveals, per radiologist , no evidence for acute intracranial abnormality. ED physician has reviewed this radiology report. Maxillofacial CT CT Interpretation Completed By: Radiologist - Maxillofacial CT reveals, per radiologist, 1. Probable nondisplaced fracture of the lateral wall of the right orbit. 2. Findings suggestive of mild chronic sinusitis. ED physician has reviewed this radiology report. Cervical Spine CT CT Interpretation Completed By: Radiologist - Cervical spine CT reveals, per radiologist, 1. Straightening of the cervical spine. No evidence for fracture or subluxation. 2. Moderate cervical spondylosis. ED physician has reviewed this radiology report. Adult Trauma Course/Dx - Course Assessment/Plan: This patient is a 62-year-old female who presents to the emergency department with a chief complaint of an accidental fall. She reports that she was trying to hang a picture in the wall she was standing in the chair and she fell down. She doesnt remember if she had a syncopal episode with loss of consciousness however she doesnt remember wave this episode. She thinks that she was lying in the floor for a long time before she called her for help. Blood tests without any significant abnormality. X-ray of the right wrist and hand impression: Impacted comminuted intra-articular fracture of the distal radius. Fracture of the ulnar styloid process. X-ray of the left ankle impression: Possible nondisplaced fracture of the distal fibula. Maxillofacial CT impression: Probably nondisplaced fracture of the lateral wall of the right orbit. Findings suggestive of mild chronic sinusitis. Head CT impression: No evidence for acute interconnected abnormality. C-spine CT impression: In the ED course and we obtained an IV access and she was given IV fluids, Zofran for nausea and morphine for pain. Laceration was repaired. Please see procedure note. Discussed the case with and Dr. Mckeon from orthopedics and he requested for the patient to get in the splint in the right upper extremity and also put for the left lower extremity. The wrist is splinted was done. I also discussed the findings of the orbital wall fracture and since the patient doesnt have any eye entrapment, and there fracture is nondisplaced the patient will be discharged with follow-up with oral surgery. I discussed all the findings and test results with the patient. Patient was instructed to return to the emergency room immediately if any of the symptoms return or worsens. Plan of care was discussed with the patient and understands and agrees. All questions were answered at patient satisfaction. There were no further complaints or concerns. Lung exam before discharge: CTA B /L. Good air exchange. No wheezing or crackles heard. CVS: S1 and S2 present. No murmurs appreciated. Patient is alert and oriented x 3. Patient is hemodynamically stable. Patient will be discharged home with follow up PCP in the next 2-3 days - Diagnoses Differential Diagnosis/HQI/PQRI: Positive: Abrasion(s), Contusion(s), Fracture, Dislocation, Hematoma(s), Laceration(s), Sprain, Strain Provider Diagnoses: Head contusion, Facial contusion, Laceration of eyelid, Ankle fracture, Wrist fracture - Physician Notifications Discussed Care Of Patient With: Wyatt Mckeon Time Discussed With Above Provider: 13:45 Instructed by Provider To: Other - Consult with Dr. Mckeon (orthopedics) at 1345. He recommends a wrist splint for the fracture of the wrist, a boot for the ankle, and no weight bearing. Discharge - Sign-Out/Discharge Documenting (check all that apply): Patient Departure - Discharge home - Discharge Plan Condition: Stable Disposition: HOME Prescriptions: HYDROcodone/ACETAMIN 5-325 MG* [[place] 5-325 TAB*] 1 tab PO Q6H PRN #12 tab MDD 4 PRN Reason: Pain Patient Education Materials: Hydrocodone/Acetaminophen (By mouth), Ankle Fracture (ED), Laceration (ED), Wrist Fracture in Adults (ED), Facial Contusion (ED) Referrals: Dylan Grossman MD [Primary Care Provider] - 2 Days Wyatt Mckeon MD [Medical Doctor] - 2 Days Álvaro Perez MD [Doctor of Dental Medicine] - 2 Days (For facial fracture) Additional Instructions: RETURN TO THE EMERGENCY DEPARTMENT FOR NEW OR WORSENING SYMPTOMS Attestations Scribe Attestation: This is stu Barrett documenting for attending Moses Bhandari MD. User Type: Provider with Scribe Provider Attestation: The documentation recorded by the scribe accurately reflects the service I personally performed and the decisions made by me.
[2018-01-03 12:59] LABS: ABS Basophils 0.1 10^3/ul (0-0.2); ABS Eosinophils 0 10^3/ul (0-0.6); ABS Lymphocytes 2.4 10^3/ul (1.0-4.8); ABS Monocytes 0.6 10^3/ul (0-0.8); ABS Nucleated RBC 0 10^3/ul; Eosinophil % 0.4 % (0-6); Hematocrit 43 % (35-47); Hemoglobin 14.4 g/dl (12.0-16.0); Lymphocyte % 23.9 % (25-47); Mean Corpuscular HGB Conc 34 g/dl (31-36); Mean Corpuscular Hemoglobin 30 pg (27-31); Mean Corpuscular Volume 90 fL (80-97); Nucleated Red Blood Cells % 0; Platelet Count 275 10^3/ul (150-450); Red Blood Count 4.79 10^6/ul (4.00-5.40); Red Cell Distribution Width 14 % (10.5-15); White Blood Count 10.1 10^3/ul (3.5-10.8)
--- NOTE | 2018-01-03 13:12 | RAD ---
INDICATION: Left ankle injury. TECHNIQUE: 3 views of the left ankle were obtained. FINDINGS: The bones appear osteopenic and are in normal alignment. On one view there is a faint radiolucent line extending transversely through the distal fibula extending toward the ankle joint space possibly representing a nondisplaced fracture. No other fractures are seen. Joint spaces appear maintained. IMPRESSION: POSSIBLE NONDISPLACED FRACTURE OF THE DISTAL FIBULA.
--- NOTE | 2018-01-03 13:14 | RAD ---
INDICATION: Right wrist injury. TECHNIQUE: 3 views of the right wrist were obtained. FINDINGS: The bones are osteopenic. There is a comminuted fracture of the distal radial metaphysis. A component of the fracture extends to the distal articular surface. The fracture fragments are impacted. There is also a slightly comminuted avulsion fracture arising from the ulnar styloid process. IMPRESSION: 1. SLIGHTLY IMPACTED, COMMINUTED, INTRA-ARTICULAR FRACTURE OF THE DISTAL RADIUS. 2. FRACTURE OF THE ULNAR STYLOID PROCESS.
[2018-01-03 13:15] LABS: EGFR Non-African American 103.6 (>60)
--- NOTE | 2018-01-03 13:18 | RAD ---
INDICATION: Right hand injury. TECHNIQUE: 4 views of the right hand were obtained. FINDINGS: The bones appear osteopenic. Again note is made of fractures of the distal radius and ulnar styloid process. No additional fracture is seen. Joint spaces appear maintained. IMPRESSION: FRACTURES OF THE DISTAL RADIUS AND ULNAR STYLOID PROCESS PREVIOUSLY DESCRIBED. NO ADDITIONAL FRACTURE IS SEEN.
--- NOTE | 2018-01-03 13:21 | RAD ---
INDICATION: Head injury. COMPARISON: Comparison is made with a prior CT of the brain from October 21, 2013. TECHNIQUE: Contiguous axial sections of the brain were obtained from the skull base to the vertex without contrast. FINDINGS: The ventricles, cisterns and sulci are within normal limits. No significant focal abnormality or mass effect is seen. There is no evidence for hemorrhage. No significant focal osseous abnormality is seen. The visualized portion of the paranasal sinuses and mastoid air cells appear clear. IMPRESSION: NO EVIDENCE FOR ACUTE INTRACRANIAL ABNORMALITY.
[2018-01-03] MEDS ORDERED: Morphine INJ* 2 MG/ML 1 ML SYRINGE (TWO MG - NEW SYRINGE VERSION) ONE (13:22)
--- NOTE | 2018-01-03 13:29 | RAD ---
INDICATION: Facial trauma. COMPARISON: Comparison is made with a prior CT of the facial bones from October 21, 2013. TECHNIQUE: Contiguous axial sections of the axial images of the facial bones were obtained and reconstructed in the coronal and sagittal planes. FINDINGS: There is soft tissue swelling and a soft tissue defect present along the lateral aspect of the right orbit. The globes appear intact. There is suggestion of a faintly visualized nondisplaced fracture of the lateral wall of the right orbit. The orbital garcia otherwise appear intact. The zygomatic arches appear intact. There is no evidence for a fracture of the mandible. There is an old healed fracture of the nasal bones. There is moderate deviation of the nasal septum toward the right side. The pterygoid plates appear intact. There is a small 1 cm mucous retention cyst or polyp within the inferior portion of the left maxillary sinus. The maxillary sinuses were otherwise clear. There is mild mucosal thickening within the ethmoid air cells. The frontal sinus is clear. There is mild mucosal thickening within the sphenoid sinus on the right side. IMPRESSION: 1. PROBABLE NONDISPLACED FRACTURE OF THE LATERAL WALL OF THE RIGHT ORBIT. 2. FINDINGS SUGGESTIVE OF MILD CHRONIC SINUSITIS.
--- NOTE | 2018-01-03 13:40 | RAD ---
INDICATION: Trauma. COMPARISON: There are no prior studies available for comparison. TECHNIQUE: Contiguous axial sections were obtained from the skull base through the T1 vertebra. Images were reconstructed in the sagittal and coronal planes. FINDINGS: There is straightening of the cervical spine with loss of the normal cervical lordosis. There is mild retrolisthesis of C5 relative to C6 of approximately 3 mm which is likely degenerative in origin. No prevertebral soft tissue swelling or fracture is seen. At the C3-C4 level there is posterior uncinate process spurring and a small central disc protrusion. No spinal canal or neural foraminal narrowing is seen. At the C4-C5 level there is mild uncinate process spurring. No spinal canal or neural foraminal narrowing is seen. At the C5-C6 level there is mild retrolisthesis of C5 relative to C6. There is mild to moderate posterior uncinate process spurring and mild to moderate spinal canal narrowing. There is moderate to severe bilateral neural foraminal narrowing. At C6-C7 level there is moderate posterior uncinate process spurring. There is mild spinal canal narrowing and mild neural foraminal narrowing on the right side and moderate neural foraminal narrowing on the left side. The lung apices appear clear. There is bilateral paraseptal emphysematous change. IMPRESSION: 1. STRAIGHTENING OF THE CERVICAL SPINE, NO EVIDENCE FOR FRACTURE OR SUBLUXATION. 2. MODERATE CERVICAL SPONDYLOSIS.
[2018-01-03] MEDS ORDERED: Morphine INJ* 2 MG/ML 1 ML SYRINGE (TWO MG - NEW SYRINGE VERSION) IV ONE (14:00)
[2018-01-03] MEDS ORDERED: Lidocaine 1% INJ* 10 MG/ML 30 ML SDV ONE (14:04)
[2018-01-03] MEDS ORDERED: Morphine VIAL* 10 MG/ML 1 ML VIAL IV ONE (14:30)
[2018-01-03] MEDS ORDERED: Tetan/Diph/Pertus SYR(Tdap)* 0.5 ML SYR(BOOSTRIX) use SYR IM ONE (14:51)
[2018-01-03 15:38] VITALS: BP 163/90
== END 2018-01-03 15:37 | disposition home or self-care (01) ==
LOC: ED 10:43
DX: S52.571A Other intraarticular fracture of lower end of right radius, initial encounter for closed fracture (principal); S52.611A Displaced fracture of right ulna styloid process, initial encounter for closed fracture; S01.111A Laceration without foreign body of right eyelid and periocular area, initial encounter; W17.89XA Other fall from one level to another, initial encounter; Y92.009 Unspecified place in unspecified non-institutional (private) residence as the place of occurrence of the external cause; F17.210 Nicotine dependence, cigarettes, uncomplicated; M47.812 Spondylosis without myelopathy or radiculopathy, cervical region; Z23 Encounter for immunization
CPT/HCPCS: 12011; 36415; 70450; 70486; 72125; 80053; 85025; 86850; 86900; 86901; 90471; 90715; 96374; 96375; 96376; 99283; J2270; J2405

== ENCOUNTER 2018-01-04 15:38 | Emergency (ER) | payer BC, OTHER ==
[2018-01-04] MEDS ORDERED: NS 0.9% 1000 ML* 1,000 ML IV ONE (15:57)
[2018-01-04] MEDS ORDERED: Ondansetron INJ* 2 MG/ML VIAL IV ONE (15:57)
[2018-01-04 16:46] LABS: ABS Basophils 0.1 10^3/ul (0-0.2); ABS Eosinophils 0 10^3/ul (0-0.6); ABS Lymphocytes 1.6 10^3/ul (1.0-4.8); ABS Monocytes 0.7 10^3/ul (0-0.8); ABS Nucleated RBC 0 10^3/ul; Eosinophil % 0 % (0-6); Hematocrit 41 % (35-47); Hemoglobin 14.2 g/dl (12.0-16.0); Lymphocyte % 12.8 % (25-47); Mean Corpuscular HGB Conc 34 g/dl (31-36); Mean Corpuscular Hemoglobin 30 pg (27-31); Mean Corpuscular Volume 89 fL (80-97); Nucleated Red Blood Cells % 0; Platelet Count 270 10^3/ul (150-450); Red Blood Count 4.67 10^6/ul (4.00-5.40); Red Cell Distribution Width 13 % (10.5-15); White Blood Count 12.3 10^3/ul (3.5-10.8)
--- NOTE | 2018-01-04 16:55 | ED ---
Complex/Multi-Sys Presentation - HPI Summary HPI Summary: This is scribe Jevon Kirby documenting for attending Moses Bhandari MD. A 62 y/o female accompanied by her presents to ED c/o excessive vomiting and generalized body pain reaching 7/10 in severity. In the ED room, the patient has a pulse of 80 BPM, O2 saturation of 98% and blood pressure of 152/94. As per triage, "in yesterday for falling off chair hanging presents, cracked orbital bone, wrist, and foot. today she's vomiting, possibly from meds ? but vomited at least 30 X". According to the patient she has been vomiting excessively (25 times) since being on new medications prescribed for her yesterday for a fall. Pt denies any chest pain, SOB, abdominal pain or palpitations, but does have a headache. She is not sure if it is the medications , but she believes it could be. She noted that she did not take any more medications since 1600. She stated that she cannot eat anything at all and all she has been able to do is sip on some water. SHx of no ETOH (since 1983). I, Dr. Bhandari personally performed the services described in this documentation as scribed in my presence and it is both accurate and complete. - History Of Current Complaint Chief Complaint: EDTraumaMultiple Time Seen by Provider: 01/04/18 15:57 Hx Obtained From: Patient Onset/Duration: Sudden Onset, Still Present Timing: Intermittent, Lasting: - Vomiting episodes, 25. Severity Currently: Severe - 7/10 Severity Initially: Severe - 7/10 Character: Typical Headache Aggravating Factor(s): NOTHING Alleviating Factor(s): NOTHING Associated Signs And Symptoms: Positive: Headache, Vomiting. Negative: SOB, Chest Pain, Palpitations, Abdominal Pain - Allergies/Home Medications Allergies/Adverse Reactions: Allergies Allergy/AdvReac Type Severity Reaction Status Date / Time No Known Allergies Allergy Verified 01/03/18 11:01 PMH/Surg Hx/FS Hx/Imm Hx Endocrine/Hematology History: Denies: Hx Diabetes, Hx Thyroid Disease Cardiovascular History: Reports: Other Cardiovascular Problems/Disorders - pt reports runs of tachycardia Denies: Hx Angina, Hx Coronary Artery Disease, Hx Hypercholesterolemia, Hx Hypertension, Hx Myocardial Infarction, Hx Pacemaker/ICD, Hx Valvular Heart Disease Respiratory History: Denies: Hx Asthma, Hx Chronic Obstructive Pulmonary Disease (COPD) GI History: Denies: Hx Ulcer Musculoskeletal History: Reports: Hx Orthopedic Injury, Hx Osteoporosis Sensory History: Reports: Hx Contacts or Glasses Denies: Hx Hearing Aid Opthamlomology History: Reports: Hx Contacts or Glasses Psychiatric History: Denies: Hx Panic Disorder - Cancer History Cancer Type, Location and Year: skin ca to leg - Surgical History Surgery Procedure, Year, and Place: 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 Hx Anesthesia Reactions: - local only - Immunization History Date of Tetanus Vaccine: UTD Date of Influenza Vaccine: 2016 Infectious Disease History: No Infectious Disease History: Denies: Hx Hepatitis, Hx Human Immunodeficiency Virus (HIV), Traveled Outside the US in Last 30 Days - Family History Known Family History: Positive: Cardiac Disease - Grandparent - Social History Alcohol Use: None Hx Substance Use: Yes Substance Use Type: Reports: Marijuana Substance Use Comment - Amount & Last Used: occasionally Hx Tobacco Use: Yes Smoking Status (MU): Heavy Every Day Tobacco Smoker Type: Cigarettes Amount Used/How Often: 1/2 to 3/4ppd Have You Smoked in the Last Year: Yes Review of Systems Negative: Fever Negative: Palpitations, Chest Pain Negative: Shortness Of Breath Positive: Vomiting. Negative: Abdominal Pain Positive: Myalgia - Diffuse Positive: Headache All Other Systems Reviewed And Are Negative: Yes Physical Exam - Summary Physical Exam Summary: VITAL SIGNS: Reviewed. GENERAL: Patient is a well-developed and nourished female who is lying comfortable in the stretcher. Patient is not in any acute respiratory distress. Patient is slightly dehydrated. Patient has a split on right wrist secondary to wrist fracture. Patient also has a boot on the left leg secondary to ankle fracture. HEAD AND FACE: No signs of trauma. No ecchymosis, hematomas or skull depressions. No sinus tenderness. EYES: PERRLA, EOMI x 2, No injected conjunctiva, no nystagmus. EARS: Hearing grossly intact. Ear canals and tympanic membranes are within normal limits. MOUTH: Oropharynx within normal limits. Dry mouth and dry oral mucosa. NECK: Supple, trachea is midline, no adenopathy, no JVD, no carotid bruit, no c- spine tenderness, neck with full ROM. CHEST: Symmetric, no tenderness at palpation LUNGS: Clear to auscultation bilaterally. No wheezing or crackles. CVS: Regular rate and rhythm, S1 and S2 present, no murmurs or gallops appreciated. ABDOMEN: Soft, non-tender. No signs of distention. No rebound no guarding, and no masses palpated. Bowel sounds are normal. EXTREMITIES: FROM in all major joints, no edema, no cyanosis or clubbing. NEURO: Alert and oriented x 3. No acute neurological deficits. Speech is normal and follows commands. SKIN: Dry and warm Triage Information Reviewed: Yes Vital Signs On Initial Exam: Initial Vitals Temp Pulse Resp BP Pulse Ox 98.3 F 83 22 153/94 97 01/04/18 15:44 01/04/18 15:44 01/04/18 15:44 01/04/18 15:44 01/04/18 15:44 Vital Signs Reviewed: Yes Diagnostics - Vital Signs Vital Signs Temp Pulse Resp BP Pulse Ox 01/04/18 15:44 98.3 F 83 22 153/94 97 - Laboratory Lab Results: Lab Results 01/04/18 Range/Units 16:38 WBC 12.3 H (3.5-10.8) 10^3/ul RBC 4.67 (4.00-5.40) 10^6/ul Hgb 14.2 (12.0-16.0) g/dl Hct 41 (35-47) % MCV 89 (80-97) fL MCH 30 (27-31) pg MCHC 34 (31-36) g/dl RDW 13 (10.5-15) % Plt Count 270 (150-450) 10^3/ul MPV 9.0 (7.4-10.4) um3 Neut % (Auto) 81.3 (38-83) % Lymph % (Auto) 12.8 L (25-47) % [place] % (Auto) 5.4 (0-7) % Eos % (Auto) 0 (0-6) % Baso % (Auto) 0.5 (0-2) % Absolute Neuts (auto) 10.0 H (1.5-7.7) 10^3/ul Absolute Lymphs (auto) 1.6 (1.0-4.8) 10^3/ul Absolute Monos (auto) 0.7 (0-0.8) 10^3/ul Absolute Eos (auto) 0 (0-0.6) 10^3/ul Absolute Basos (auto) 0.1 (0-0.2) 10^3/ul Absolute Nucleated RBC 0 10^3/ul Nucleated RBC % 0 Result Diagrams: 01/04/18 16:38 18 16:38 Lab Statement: Any lab studies that have been ordered have been reviewed, and results considered in the medical decision making process. Re-Evaluation - Re-Evaluation First Eval Re-Evaluation Time: 18:33 Change: Improved Comment: Patient is feeling better. Patient has no nausea or vomiting. Complex Multi-Symp Course/Dx Course Of Treatment: The patient was found to have increased BP in [facility] ED. The patient will follow up with PCP for better control of BP. Assessment/Plan: Patient is a 62-year-old female who presents to the emergency department with a chief complaint of having nausea and vomiting. She has been taking [place] for pain however it has caused nausea and vomiting. In the ED course the patient was given Zofran and she was given IV fluids and her symptoms improved. I also gave her 1 dose of morphine for the pain. At this point the patient is tolerating by mouth. I will send the patient home with a prescription for Zofran. I discussed all the findings and test results with the patient. Patient was instructed to return to the emergency room immediately if any of the symptoms return or worsens. Plan of care was discussed with the patient and understands and agrees. All questions were answered at patient satisfaction. There were no further complaints or concerns. Lung exam before discharge: CTA B/L. Good air exchange. No wheezing or crackles heard. CVS: S1 and S2 present. No murmurs appreciated. Patient is alert and oriented x 3. Patient is hemodynamically stable. Patient will be discharged home with follow up PCP in the next 2-3 days - Diagnoses Provider Diagnoses: Nausea & vomiting Discharge - Sign-Out/Discharge Documenting (check all that apply): Patient Departure - DISCHARGE - Discharge Plan Condition: Stable Disposition: HOME Prescriptions: Ondansetron ODT TAB* [Zofran 4 MG Odt TAB*] 4 mg PO Q6H PRN #10 tab.odt PRN Reason: Nausea Patient Education Materials: Acute Nausea and Vomiting (ED) Referrals: Dylan Grossman MD [Primary Care Provider] - 1 Week Additional Instructions: TAKE ZOFRAN PRESCRIBED. FOLLOW UP WITH YOUR PRIMARY CARE PROVIDER WITHIN ONE WEEK FOR HIGH BLOOD PRESSURE NOTED TODAY. RETURN TO ED FOR ANY WORSENING OR NEW SYMPTOMS. Attestations Scribe Attestation: This is scribe Jevon Kirby documenting for attending Moses Bhandari MD. User Type: Provider with Scribe Provider Attestation: The documentation recorded by the scribe accurately reflects the service I personally performed and the decisions made by me.
[2018-01-04 17:03] LABS: EGFR Non-African American 112.4 (>60)
[2018-01-04] MEDS ORDERED: Morphine VIAL* 10 MG/ML 1 ML VIAL IV ONE (17:17)
[2018-01-04] MEDS ORDERED: Ondansetron ODT TAB* 4 MG PO ONE (19:35)
[2018-01-04 20:36] VITALS: BP 137/78
== END 2018-01-04 20:40 | disposition home or self-care (01) ==
LOC: ED 15:38
DX: R11.2 Nausea with vomiting, unspecified (principal); F17.210 Nicotine dependence, cigarettes, uncomplicated
CPT/HCPCS: 36415; 80053; 83690; 85025; 86140; 96361; 96374; 96375; 99284; A9270-GY; J2270; J2405

== ENCOUNTER 2018-11-15 15:07 | Observation (INO) | payer BC, OTHER ==
--- NOTE | 2018-11-15 15:34 | ED ---
Shortness of Breath - HPI Summary HPI Summary: A 63 y/o female presents to [facility] with a chief complaint of SOB for the past three weeks upon exertion. The patient also reports CP and diaphoresis upon exertion, but denies nausea. Her symptoms are alleviated with rest. At triage she rated her pain as a 4/10 in severity. She has a Hx of SVT but denies a Hx of NE, DM, or HTN. She thinks that she may have high cholesterol but is not sure. She smokes 1ppd, claiming that she used to smoke 1/2 ppd but for the past two years the stress of dealing with her mother with Alzheimer's has her smoking more. - History of Current Complaint Chief Complaint: EDShortnessOfBreath Time Seen by Provider: 11/15/18 15:18 Hx Obtained From: Patient Onset/Duration: Sudden Onset, Lasting Weeks, Still Present Timing: Intermittent Episodes Lasting: - has been going on for weeks Current Severity: None Dyspnea At: Exertion Aggravating Factors: Movement Alleviating Factors: Nothing Associated Signs & Symptoms: Diaphoresis - Allergy/Home Medications Allergies/Adverse Reactions: Allergies Allergy/AdvReac Type Severity Reaction Status Date / Time No Known Allergies Allergy Verified 11/15/18 15:13 Home Medications: Home Medications NK [No Home Medications Reported] 11/15/18 [History Confirmed 11/15/18] PMH/Surg Hx/FS Hx/Imm Hx Endocrine/Hematology History: Denies: Hx Diabetes, Hx Thyroid Disease Cardiovascular History: Reports: Other Cardiovascular Problems/Disorders - pt reports runs of tachycardia Denies: Hx Angina, Hx Coronary Artery Disease, Hx Hypercholesterolemia, Hx Hypertension, Hx Myocardial Infarction, Hx Pacemaker/ICD, Hx Valvular Heart Disease Respiratory History: Denies: Hx Asthma, Hx Chronic Obstructive Pulmonary Disease (COPD) GI History: Denies: Hx Ulcer Musculoskeletal History: Reports: Hx Orthopedic Injury, Hx Osteoporosis Sensory History: Reports: Hx Contacts or Glasses Denies: Hx Hearing Aid Opthamlomology History: Reports: Hx Contacts or Glasses Psychiatric History: Denies: Hx Panic Disorder - Cancer History Cancer Type, Location and Year: skin ca to leg - Surgical History Surgery Procedure, Year, and Place: 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 Hx Anesthesia Reactions: - local only - Immunization History Date of Tetanus Vaccine: UTD Date of Influenza Vaccine: 2015 Infectious Disease History: No Infectious Disease History: Denies: Hx Hepatitis, Hx Human Immunodeficiency Virus (HIV), Traveled Outside the US in Last 30 Days - Family History Known Family History: Positive: Cardiac Disease - Grandparent - Social History Alcohol Use: None Hx Substance Use: Yes Substance Use Type: Reports: Marijuana Substance Use Comment - Amount & Last Used: occasionally Hx Tobacco Use: Yes Smoking Status (MU): Heavy Every Day Tobacco Smoker Type: Cigarettes Amount Used/How Often: 1/2 to 3/4ppd Have You Smoked in the Last Year: Yes Review of Systems Positive: Skin Diaphoresis. Negative: Fever Positive: Chest Pain Positive: Shortness Of Breath Negative: Nausea All Other Systems Reviewed And Are Negative: Yes Physical Exam - Summary Physical Exam Summary: GENERAL: Patient is a well-developed and nourished F who is lying comfortable in the stretcher. Patient is not in any acute respiratory distress. HEAD AND FACE: Normocephalic EYES: PERRLA, EOMI x 2. EARS: Hearing grossly intact. MOUTH: Oropharynx within normal limits. NECK: Supple, trachea is midline, no adenopathy, no JVD, no carotid bruit. CHEST: Symmetric, no tenderness at palpation LUNGS: Clear to auscultation bilaterally. No wheezing or crackles. CVS: Regular rate and rhythm, S1 and S2 present, no murmurs or gallops appreciated. ABDOMEN: Soft, non-tender. Bowel sounds are normal. No abnormal abdominal pulsations. EXTREMITIES: Full ROM in all major joints, no edema, no cyanosis or clubbing. NEURO: Alert and oriented x 3. No acute neurological deficits. Speech is normal and follows commands. SKIN: Dry and warm Triage Information Reviewed: Yes Vital Signs On Initial Exam: Initial Vitals Temp Pulse Resp BP Pulse Ox 98.1 F 97 16 155/101 98 11/15/18 15:08 11/15/18 15:08 11/15/18 15:08 11/15/18 15:08 11/15/18 15:08 Vital Signs Reviewed: Yes Diagnostics - Vital Signs Vital Signs Temp Pulse Resp BP Pulse Ox 11/15/18 15:23 23 98 11/15/18 15:08 98.1 F 97 16 155/101 98 - Laboratory Result Diagrams: 11/15/18 15:36 11/15/18 15:36 Lab Statement: Any lab studies that have been ordered have been reviewed, and results considered in the medical decision making process. - Radiology CXR Radiology Interpretation Completed By: Radiologist Summary of Radiographic Findings: Stigmata of obstructive lung disease. No acute pulmonary or cardiac process evident. ED physician has reviewed this imaging report. - EKG 15:29 Cardiac Rate: NL - 74 bpm EKG Rhythm: Sinus Rhythm Summary of EKG Findings: NSR at 74 bpm, nml axis. Course/Dx - Course Course Of Treatment: A 63 y/o female presents to [facility] with a chief complaint of SOB for the past three weeks upon exertion. The patient also reports CP and diaphoresis upon exertion, but denies nausea. The physical exam was unremarkable. EKG at 15:29 showed NSR at 74 bpm, nml axis. CXR impression: Stigmata of obstructive lung disease. No acute pulmonary or cardiac process evident. In the ED course the patient was given Aspirin PO and a nicotine patch. Bloodwork and chemistries obtained and are WNL. The patient will be admitted. Case discussed with Dr. Galdamez, hospitalist. I discussed results with patient. The patient agrees with this plan. - Diagnoses Provider Diagnoses: Chest pain - Physician Notifications Discussed Care of Patient With: Cheryl Galdamez Time Discussed With Above Provider: 16:42 Instructed by Provider To: Admit As Inpatient Discharge - Sign-Out/Discharge Documenting (check all that apply): Patient Departure - admit Patient Received Moderate/Deep Sedation with Procedure: No - Discharge Plan Condition: Fair Disposition: ADMITTED TO [facility] - Billing Disposition and Condition Condition: FAIR Disposition: Admitted to [facility] - Attestation Statements Document Initiated by Scribe: Yes Documenting Scribe: Santhosh Kuhn Provider For Whom Kash is Documenting (Include Credential): Dinora Hernández MD Scribe Attestation: ISanthosh, scribed for Dinora Hernández MD on 11/15/18 at 1818. Scribe Documentation Reviewed: Yes Provider Attestation: The documentation as recorded by the Santhosh peraza accurately reflects the service I personally performed and the decisions made by me, Joanna Hernández MD Status of Scribe Document: Viewed
[2018-11-15 15:50] LABS: ABS Basophils 0.1 10^3/ul (0-0.2); ABS Eosinophils 0.1 10^3/ul (0-0.6); ABS Lymphocytes 3.6 10^3/ul (1.0-4.8); ABS Monocytes 0.6 10^3/ul (0-0.8); ABS Neutrophils 3.8 10^3/ul (1.5-7.7); Hematocrit 43 % (35-47); Hemoglobin 14.6 g/dL (12.0-16.0); Lymphocyte % 44.2 %; Mean Corpuscular HGB Conc 34 g/dL (31-36); Mean Corpuscular Hemoglobin 30 pg (27-31); Mean Corpuscular Volume 89 fL (80-97); Mean Platelet Volume 8.7 fL (7.4-10.4); Nucleated Red Blood Cells % 0.1; Platelet Count 298 10^3/uL (150-450); Red Blood Count 4.82 10^6 /uL (3.70-4.87); Red Cell Distribution Width 13 % (10-15); White Blood Count 8.2 10^3/uL (3.5-10.8)
[2018-11-15 15:58] LABS: Activated Partial Thrombo Time 34.5 seconds (26.0-38.0); INR 1.02 (0.82-1.09)
[2018-11-15 16:04] LABS: Albumin 4.2 g/dL (3.2-5.2); Albumin/Globulin Ratio 1.6 (1-3); BUN/Creatinine Ratio 16.9 (8-20); Calcium 9.3 mg/dL (8.6-10.3); EGFR African American 111.8 (>60); EGFR Non-African American 92.4 (>60); Globulin 2.6 g/dL (2-4); Potassium 3.8 mmol/L (3.5-5.0); Total Bilirubin 0.5 mg/dL (0.2-1.0); Total Protein 6.8 g/dL (6.4-8.9)
[2018-11-15] MEDS ORDERED: Aspirin 81 mg CHEW TAB* 81 MG TAB.CHEW PO ONE (16:21)
[2018-11-15] MEDS ORDERED: Nicotine PATCH 14 MG/24 HR* PATCH TRANSDERM ONE (16:32)
[2018-11-15] MEDS ORDERED: Acetaminophen TAB* 325 MG PO PRN (17:39)
--- NOTE | 2018-11-15 18:48 | HP ---
AMENDED REPORT NOW INCLUDES DESIGNATED COSIGNER CC: Primary Care Provider, [facility] * HOSPITAL MEDICINE HISTORY AND PHYSICAL: DATE OF ADMISSION: 11/15/18 PRIMARY CARE PROVIDER: At [facility], previously Dr. Grossman. ATTENDING PHYSICIAN: Dr. Cheryl Galdamez * (dictation provided by Sonia Freitas NP ). CHIEF COMPLAINT: Dyspnea on exertion with chest heaviness. HISTORY OF PRESENT ILLNESS: Ms. Jordan is a 63-year-old female with a past medical history only of chronic smoking who presents to the hospital today with concern for worsening dyspnea on exertion associated with chest heaviness. Ms. Jordan states she was in her normal state of health until about 2 weeks ago, when she noted that she was feeling more short of breath as she was going up stairs. She is currently caring for her mother, who has advanced dementia and spends the time during the week in [place] with her mother and then is home here in [place] on the weekends. Again, at the patient's mom's house, she was noting some dyspnea with walking up stairs. Over the past few days, the patient is noting that this has become more pronounced and that she is also feeling chest heaviness. She today was just sweeping the floor and this sort of activity precipitated these symptoms of shortness of breath and chest pain. She reviewed this with her and her brother, who is a physician, and they strongly recommended that she come to the hospital for evaluation. She states that she is chest pain free at the moment. She denies any other complaints. In the emergency room, Ms. Jordan had labs which showed a troponin of 0.00, she had a lactic acid of 0.5. All the remaining labs are negative. Her D-dimer is less than 200. She had a chest x-ray that showed stigmata of COPD and an EKG which showed no evidence of ischemia with a sinus rhythm. PAST MEDICAL HISTORY: History of SVT; history of questionable hyperlipidemia, not on medications. MEDICATION LIST: No home medications. ALLERGIES: No known drug allergies. FAMILY HISTORY: The patient's mother has Alzheimer's. Dad in 2002 related to respiratory failure in the setting of severe ankylosing spondylitis. SOCIAL HISTORY: The patient is a persistent smoker, smokes about a pack a day. She denies alcohol or drug use. She lives with her , who is the healthcare proxy. REVIEW OF SYSTEMS: A 14-point review of systems was completed with the patient and all those not mentioned above were negative. PHYSICAL EXAMINATION GENERAL: Ms. Jordan is lying on the bed. She is in no acute distress. VITAL SIGNS: Temperature 98.1, pulse rate 69, respiratory rate 17, O2 saturation 96% on room air, blood pressure 148/94. LUNGS: Clear to auscultation bilaterally with no accessory muscle use and good aeration. HEART: S1, S2. No murmur, rub, or gallop and regular. ABDOMEN: Soft, nontender with bowel sounds positive x4. EXTREMITIES: No cyanosis or edema. NEURO: She is alert and oriented x3. She moves all extremities equally. There is no facial asymmetry or focal weakness. Her extraocular movements are intact. SKIN: Intact. DIAGNOSTIC STUDIES/LAB DATA: WBC 8.2, hemoglobin 14.6, hematocrit 43, platelet count 298. INR 1.02. D-dimer less than 200. Sodium 138, potassium 3.8, chloride 105, serum bicarbonate 26, BUN 11, creatinine 0.65, glucose 113, lactic acid 0.5. Troponin 0.01, BNP 14. Chest x-ray shows stigmata of chronic obstructive lung disease only. The EKG shows sinus rhythm with a heart rate in the 60s and no evidence of ischemia. ASSESSMENT AND PLAN: Ms. Jordan is a 63-year-old female with a past medical history of supraventricular tachycardia and chronic smoking who presents to the hospital with concern for worsening dyspnea on exertion associated with chest heaviness. Our plans are for observation in the hospital for the followin. Dyspnea on exertion with chest heaviness: The patient's troponin is 0.00 and EKG shows no evidence of ischemia. Plan to repeat troponins x2 with concomitant EKGs. The patient will go for nuclear medicine stress test tomorrow as she states she would not be able to exercise adequately on a treadmill based on her symptoms over the past 2 weeks. She has no evidence of lung disease, other than chronic obstructive pulmonary disease. She has no evidence for chronic obstructive pulmonary disease exacerbation. Her D-dimer is less than 200, which makes pulmonary embolism unlikely. The patient will have aspirin daily. I plan to check lipid profile in the a.m. The patient will be on telemetry monitoring. 2. Supraventricular tachycardia: The patient has no symptoms of palpitations and has had none over the past 2 weeks. She states that she is very aware of when she goes into this rhythm and uses Valsalva maneuver to resolve it successfully typically. 3. DVT prophylaxis with heparin subcu. 4. Code status is full code. TIME SPENT: Approximately 60 minutes were spent on the admission of this patient, more than half the time was spent with the patient at the bedside reviewing the events leading up to this hospitalization, performing the physical examination, and reviewing the plan of care. SONIA FREITAS, APRIL [id number]/CPS #: [id number] SUSHMA
[2018-11-15] MEDS: Heparin VIAL(*) 5000 UNITS/ML VIAL (FIVE THOUSAND) SUBCUT SCH (20:51)
[2018-11-15] MEDS ORDERED: Nicotine Patch Removal NOTE FOLLOW UP SCH (21:00)
[2018-11-16] MEDS: Heparin VIAL(*) 5000 UNITS/ML VIAL (FIVE THOUSAND) SUBCUT SCH ×2 (06:00→15:04)
[2018-11-16 06:38] LABS: HDL Cholesterol 44.3 mg/dL
[2018-11-16] MEDS: Nicotine PATCH 14 MG/24 HR* PATCH TRANSDERM SCH ×2 (06:54→07:10)
[2018-11-16] MEDS ORDERED: Aspirin 81 mg CHEW TAB* 81 MG TAB.CHEW PO SCH (09:00)
[2018-11-16 13:04] VITALS: BP 132/78
[2018-11-16] MEDS ORDERED: Regadenoson* 0.4 MG/5 ML SYRINGE ONE (13:20)
[2018-11-16] MEDS ORDERED: Nicotine* 4MG (FRUIT FLAVOR) GUM PO PRN (14:56)
--- NOTE | 2018-11-17 00:18 | DS ---
CC: Dr. Cele Weiss * DISCHARGE SUMMARY: DATE OF ADMISSION: 11/15/18 DATE OF DISCHARGE: 11/16/18 PRIMARY CARE PROVIDER: Dr. Cele Weiss DISCHARGE DIAGNOSES: 1. Chest heaviness, acute coronary syndrome ruled out and negative stress test. 2. Dyspnea on exertion, suspect likely secondary to undiagnosed chronic obstructive pulmonary disease. 3. Tobacco abuse. 4. History of supraventricular tachycardia. MEDICATIONS: Nicotine gum p.o. q.12 hours p.r.n. as needed for craving. HOSPITAL COURSE: Ms. Jordan is a 63-year-old lady with past medical history as stated above, who presents to the emergency room with complaints of progressive dyspnea on exertion associated with chest heaviness. For more details about her presentation, I refer to her history and physical. In the emergency room, the patient had a chest x-ray that showed stigmata of obstructive lung disease but no acute pulmonary or cardiac process evident. An EKG was done, and it showed no acute ischemic changes, and she had no significant arrhythmias while on telemetry. Serial troponins were negative. Lipid profile showed a total cholesterol of 214 with an LDL over 153. The patient underwent an exercise Myoview stress test and the report is as follows, "There is moderate reversal photopenia along the anterior wall on the attenuation corrected images only, which is felt to likely be artifactual. There are no fixed or reversible position defects on the known attenuation corrected images. The assessment is a low risk study. Ejection fraction is 70% ." This result was discussed with Cardiology (Dr. Funk), and he reviewed the images and thinks that this stress test is normal. In further review of the patient's symptoms, I suspect she probably has undiagnosed COPD considering her longstanding history of tobacco abuse and the x -ray findings. She walked around our unit and her oxygen saturation dropped from 98% to 92% on room air and she felt short of breath but did not have any further episodes of chest heaviness. She received education about tobacco cessation and also was advised to use nicotine gum as a foremost replacement to help with her cravings. I believe she would benefit from PFTs as outpatient to make a formal diagnosis of COPD. The patient has been traveling back and forth from [place] every week as she is taking care of her mother. She has had no calf pain, no pleuritic chest pain, and her shortness of breath has been progressively worsening associated with exertion. She had a D-dimer that was less than 200. At this point, I do not think she needs a workup for PE, but she was educated about symptoms of DVT and PE as she is at risk due to her frequent travels. The patient is medically stable for discharge to follow up with Dr. Weiss next week. PHYSICAL EXAMINATION: Vital signs: Temperature 98.3, heart rate 69, respiratory rate 18, oxygen saturation is 98% on room air, blood pressure is 108 /78. General: The patient is a pleasant lady, sitting up in bed, in no acute distress. CVS: Normal S1, S2. Regular rate and rhythm. Chest: Breath sounds bilaterally are diminished with no added sounds. Neurologic: She is alert and oriented x3. Able to move all 4 extremities. DIET: Regular diet. ACTIVITIES: As tolerated. DISPOSITION: To home. STATUS WHILE IN THE HOSPITAL: Observation. CONDITION ON DISCHARGE: Fair. Please keep in mind that this is a summarized version of this patient's hospital stay. If you need more information, please feel free to call me at or please obtain full medical records. TIME SPENT: Approximately 45 minutes was spent to complete this discharge. [id number]/[facility] #: [id number] SUSHMA
== END 2018-11-16 16:40 | disposition home or self-care (01) ==
LOC: ED 15:07 → MEDTELE 17:33
PROVIDERS: ADMIT Internal Medicine; ATTEND Internal Medicine
DX: R06.00 Dyspnea, unspecified (principal); R07.9 Chest pain, unspecified; F17.210 Nicotine dependence, cigarettes, uncomplicated; Z86.79 Personal history of other diseases of the circulatory system; Z85.828 Personal history of other malignant neoplasm of skin
CPT/HCPCS: 36415; 71046; 78452; 80053; 80061; 83605; 83735; 83880; 84484; 85025; 85379; 85610; 85730; 93005; 93017; 96372; 99283; A9270-GY; A9502; G0378; J1644; J2785

== ENCOUNTER 2021-08-25 19:38 | Inpatient (IN) ==
[2021-08-25 20:15] LABS: ABS Basophils 0.2 10^3/ul (0-0.2); ABS Eosinophils 0.1 10^3/ul (0-0.6); ABS Lymphocytes 3.6 10^3/ul (1.0-4.8); ABS Monocytes 0.9 10^3/ul (0-0.8); ABS Neutrophils 5.8 10^3/ul (1.5-7.7); Eosinophil % 1.3 %; Hematocrit 47 % (35-47); Hemoglobin 16.1 g/dL (12.0-16.0); Lymphocyte % 33.9 %; Mean Corpuscular HGB Conc 34 g/dL (31-36); Mean Corpuscular Hemoglobin 30 pg (27-31); Mean Corpuscular Volume 88 fL (80-97); Mean Platelet Volume 8.3 fL (7.4-10.4); Nucleated Red Blood Cells % 0.1; Platelet Count 269 10^3/uL (150-450); Red Blood Count 5.32 10^6 /uL (3.70-4.87); Red Cell Distribution Width 13 % (10-15); White Blood Count 10.5 10^3/uL (3.5-10.8)
[2021-08-25 20:22] LABS: INR 1.08 (0.86-1.15)
[2021-08-25 20:52] LABS: Albumin 4.3 g/dL (3.2-5.2); Calcium 9.1 mg/dL (8.6-10.3); Globulin 2.1 g/dL (2-4); Total Bilirubin 0.4 mg/dL (0.2-1.0); Total Protein 6.4 g/dL (6.4-8.9); eGFR CKD-EPI 45.9 (>60)
[2021-08-25 21:54] LABS: High Sensitivity Troponin 1 Hr 365 pg/mL (<15)
[2021-08-25] MEDS ORDERED: Heparin DRIP 25,000 UNITS BAG 25,000 UNITS/500 ML BAG IV SCH (23:00)
[2021-08-25] MEDS ORDERED: Heparin 5000 UNITS/ML 1 mL VIAL IV SCH ×2 (23:00→23:45)
[2021-08-25] MEDS ORDERED: Nicotine PATCH 21 MG/24 HR PATCH TRANSDERM ONE (23:07)
[2021-08-25 23:08] LABS: Activated Partial Thrombo Time 33.1 seconds (26.0-38.0)
[2021-08-25] MEDS ORDERED: Ondansetron 4 mg VIAL 2 MG/ML 2 ml VIAL IV PRN (23:16)
[2021-08-25 23:21] LABS: Magnesium 2.2 mg/dL (1.9-2.7)
[2021-08-25] MEDS: Heparin DRIP 25,000 UNITS BAG 25,000 UNITS/500 ML BAG IV SCH (23:42)
[2021-08-25 23:45] LABS: eGFR CKD-EPI 56.7 (>60)
[2021-08-25 23:48] LABS: TSH Ultra Thyroid Stim Horm 2.91 mcIU/mL (0.34-5.60)
[2021-08-26 05:54] LABS: ABS Basophils 0.1 10^3/ul (0-0.2); ABS Eosinophils 0.2 10^3/ul (0-0.6); ABS Lymphocytes 4.7 10^3/ul (1.0-4.8); ABS Monocytes 0.6 10^3/ul (0-0.8); ABS Neutrophils 3.2 10^3/ul (1.5-7.7); Eosinophil % 2.3 %; Hematocrit 43 % (35-47); Hemoglobin 14.3 g/dL (12.0-16.0); Lymphocyte % 53.7 %; Mean Corpuscular HGB Conc 34 g/dL (31-36); Mean Corpuscular Hemoglobin 30 pg (27-31); Mean Corpuscular Volume 90 fL (80-97); Mean Platelet Volume 8.6 fL (7.4-10.4); Platelet Count 237 10^3/uL (150-450); Red Blood Count 4.72 10^6 /uL (3.70-4.87); Red Cell Distribution Width 13 % (10-15); White Blood Count 8.7 10^3/uL (3.5-10.8)
[2021-08-26 06:15] LABS: HDL Cholesterol 45.7 mg/dL
[2021-08-26] MEDS: buPROPion SR 100 mg TAB.SR PO SCH ×2 (08:33→21:11)
[2021-08-27 02:09] LABS: Hematocrit 44 % (35-47); Hemoglobin 14.9 g/dL (12.0-16.0); Mean Corpuscular HGB Conc 34 g/dL (31-36); Mean Corpuscular Hemoglobin 30 pg (27-31); Mean Corpuscular Volume 89 fL (80-97); Mean Platelet Volume 8.4 fL (7.4-10.4); Platelet Count 242 10^3/uL (150-450); Red Blood Count 4.96 10^6 /uL (3.70-4.87); Red Cell Distribution Width 13 % (10-15); White Blood Count 7.9 10^3/uL (3.5-10.8)
[2021-08-27 02:13] LABS: ABS Eosinophils 0.2 10^3/ul (0-0.6); ABS Lymphocytes 4.5 10^3/ul (1.0-4.8); ABS Monocytes 0.6 10^3/ul (0-0.8); ABS Neutrophils 2.7 10^3/ul (1.5-7.7); Eosinophil % 1.9 %; Lymphocyte % 56.4 %; Nucleated Red Blood Cells % 0.1
[2021-08-27 02:55] LABS: Calcium 8.3 mg/dL (8.6-10.3); Magnesium 2.2 mg/dL (1.9-2.7); Potassium 4.2 mmol/L (3.5-5.0); eGFR CKD-EPI 70.4 (>60)
[2021-08-27] MEDS: Nicotine PATCH 21 MG/24 HR PATCH TRANSDERM SCH (09:49)
[2021-08-27] MEDS: buPROPion SR 100 mg TAB.SR PO SCH ×2 (09:49→20:17)
[2021-08-27] MEDS: Heparin DRIP 25,000 UNITS BAG 25,000 UNITS/500 ML BAG IV SCH (11:12)
[2021-08-28 06:04] LABS: ABS Basophils 0.1 10^3/ul (0-0.2); ABS Eosinophils 0.2 10^3/ul (0-0.6); ABS Lymphocytes 3.7 10^3/ul (1.0-4.8); ABS Monocytes 0.6 10^3/ul (0-0.8); ABS Neutrophils 2.4 10^3/ul (1.5-7.7); Eosinophil % 2.4 %; Hematocrit 43 % (35-47); Hemoglobin 14.6 g/dL (12.0-16.0); Lymphocyte % 53.1 %; Mean Corpuscular HGB Conc 34 g/dL (31-36); Mean Corpuscular Hemoglobin 30 pg (27-31); Mean Corpuscular Volume 89 fL (80-97); Mean Platelet Volume 8.9 fL (7.4-10.4); Nucleated Red Blood Cells % 0.1; Platelet Count 250 10^3/uL (150-450); Red Blood Count 4.84 10^6 /uL (3.70-4.87); Red Cell Distribution Width 13 % (10-15); White Blood Count 6.9 10^3/uL (3.5-10.8)
[2021-08-28 06:33] LABS: Calcium 8.7 mg/dL (8.6-10.3); Magnesium 2.2 mg/dL (1.9-2.7); Potassium 4.4 mmol/L (3.5-5.0); eGFR CKD-EPI 82.2 (>60)
[2021-08-28] MEDS ORDERED: Regadenoson 0.4 MG/5 ML SYRINGE ONE (07:34)
[2021-08-28] MEDS ORDERED: Aminophylline 25 MG/ML VIAL ONE (07:34)
[2021-08-28] MEDS: buPROPion SR 100 mg TAB.SR PO SCH (10:18)
[2021-08-28] MEDS: Nicotine PATCH 21 MG/24 HR PATCH TRANSDERM SCH (10:18)
[2021-08-28 10:23] VITALS: BP 138/79
== END 2021-08-28 13:30 | disposition home or self-care (01) | DRG 190 ==
LOC: ED 19:38 → SUATTDRO 23:52 → MEDTELE 23:52
PROVIDERS: ADMIT Internal Medicine; ATTEND Student in an Organized Health Care Education/Training Program